=== PATIENT | male | born 1975 | race American Indian/Alaskan Native ===

== ENCOUNTER 2019-07-20 14:03 | Emergency (ER) | payer SELFPAY ==
[2019-07-20] MEDS ORDERED: SODIUM CHLORIDE 0.9% 1000 ML 1,000 ML IV ONE ×3 (16:19→19:30)
[2019-07-20] MEDS ORDERED: INSULIN REGULAR, HUMAN 100 UNITS/1 ML IV ONE ×2 (16:20→19:29)
[2019-07-20 16:52] LABS: Basophils # (Auto) 0.1 K/mm3 (0.0-0.1); Eosinophils # (Auto) 0.2 K/mm3 (0.0-0.4); Eosinophils % (Auto) 3.4 % (0.0-4.3); Hematocrit 44.1 % (35.5-45.6); Lymphocytes # (Auto) 2.9 K/mm3 (1.2-5.4); Lymphocytes % (Auto) 39.9 % (13.4-35.0); Mean Corpuscular HGB Conc 34 % (32-34); Mean Corpuscular Volume 90 fl (84-94); Monocytes # (Auto) 0.6 K/mm3 (0.0-0.8); Monocytes % (Auto) 8.6 % (0.0-7.3); Platelet Count 210 K/mm3 (140-440); Red Blood Count 4.91 M/mm3 (3.65-5.03); Red Cell Distribution Width 12.7 % (13.2-15.2)
[2019-07-20 17:15] LABS: Alanine Aminotransferase 115 units/L (7-56); BUN/Creatinine Ratio 13; Blood Urea Nitrogen 15 mg/dL (9-20); Calcium 9.5 mg/dL (8.4-10.2); Hemolysis Index 29
--- NOTE | 2019-07-20 17:34 | Emergency Department Report ---
ED General Adult HPI - General Chief complaint: Medical Clearance Stated complaint: HIGH BLOOD SUGAR PUI?: No Time Seen by Provider: 07/20/19 16:19 Source: patient Mode of arrival: Ambulatory Limitations: No Limitations - History of Present Illness Initial comments: This is a 43-year-old male with a recent diagnosis of diabetes mellitus 2 x 1 month who presents to the ED today for hyperglycemia. 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 Patient states he is A1c was 9.2 at the clinic. Patient states that he has not yet followed up with a primary care physician but has an appointment with [facility] [place] for Saturday next week at 11 AM. Patient states he takes no medication. Patient denies fever/chills/headache/blurry vision/abdominal pain/chest pain/shortness of breath/nausea vomiting or any other symptoms. Patient is here because he was sent by the [facility] clinic - Related Data Previous Rx's Medication Instructions Recorded Last Taken Type metFORMIN [Glucophage] 850 mg PO BID #30 tablet 07/20/19 Unknown Rx Allergies Allergy/AdvReac Type Severity Reaction Status Date / Time No Known Allergies Allergy Unverified 07/20/19 14:27 ED Review of Systems ROS: Stated complaint: HIGH BLOOD SUGAR Other details as noted in HPI Comment: All other systems reviewed and negative ED Past Medical Hx - Past Medical History Previous Medical History?: No - Surgical History Past Surgical History?: No - Social History Smoking Status: Never Smoker Substance Use Type: None - Medications Home Medications: Home Medications Medication Instructions Recorded Confirmed Last Taken Type metFORMIN [Glucophage] 850 mg PO BID #30 tablet 07/20/19 Unknown Rx ED Physical Exam - General Limitations: No Limitations General appearance: alert, in no apparent distress - Head Head exam: Present: atraumatic, normocephalic - Eye Eye exam: Present: normal appearance - ENT ENT exam: Present: mucous membranes moist - Neck Neck exam: Present: normal inspection - Respiratory Respiratory exam: Present: normal lung sounds bilaterally. Absent: respiratory distress - Cardiovascular Cardiovascular Exam: Present: regular rate, normal rhythm. Absent: systolic murmur, diastolic murmur, rubs, gallop - GI/Abdominal GI/Abdominal exam: Present: soft, normal bowel sounds. Absent: distended, tenderness, guarding - Rectal Rectal exam: Present: deferred - Extremities Exam Extremities exam: Present: normal inspection - Back Exam Back exam: Present: normal inspection - Neurological Exam Neurological exam: Present: alert, oriented X3 - Psychiatric Psychiatric exam: Present: normal affect, normal mood - Skin Skin exam: Present: warm, dry, intact, normal color. Absent: rash ED Course Vital Signs 07/20/19 07/20/19 14:26 19:12 Temperature 98.0 F 98.0 F Pulse Rate 96 H 83 Respiratory 20 16 Rate Blood Pressure 134/84 110/73 O2 Sat by Pulse 97 98 Oximetry ED Medical Decision Making - Lab Data Result diagrams: 07/20/19 16:40 07/20/19 20:45 Laboratory Last Values WBC 7.2 K/mm3 (4.5-11.0) 07/20/19 16:40 RBC 4.91 M/mm3 (3.65-5.03) 07/20/19 16:40 Hgb 15.0 gm/dl (11.8-15.2) 07/20/19 16:40 Hct 44.1 % (35.5-45.6) 07/20/19 16:40 MCV 90 fl (84-94) 07/20/19 16:40 MCH 31 pg (28-32) 07/20/19 16:40 MCHC 34 % (32-34) 07/20/19 16:40 RDW 12.7 % (13.2-15.2) L 07/20/19 16:40 Plt Count 210 K/mm3 (140-440) 07/20/19 16:40 Lymph % (Auto) 39.9 % (13.4-35.0) H 07/20/19 16:40 [place] % (Auto) 8.6 % (0.0-7.3) H 07/20/19 16:40 Eos % (Auto) 3.4 % (0.0-4.3) 07/20/19 16:40 Baso % (Auto) 1.0 % (0.0-1.8) 07/20/19 16:40 Lymph # 2.9 K/mm3 (1.2-5.4) 07/20/19 16:40 [place] # 0.6 K/mm3 (0.0-0.8) 07/20/19 16:40 Eos # 0.2 K/mm3 (0.0-0.4) 07/20/19 16:40 Baso # 0.1 K/mm3 (0.0-0.1) 07/20/19 16:40 Seg Neutrophils % 47.1 % (40.0-70.0) 07/20/19 16:40 Seg Neutrophils # 3.4 K/mm3 (1.8-7.7) 07/20/19 16:40 VBG pH 7.279 (7.320-7.420) L 07/20/19 17:52 Sodium 137 mmol/L (137-145) D 07/20/19 20:45 Potassium 4.3 mmol/L (3.6-5.0) 07/20/19 20:45 Chloride 100.8 mmol/L (98-107) 07/20/19 20:45 Carbon Dioxide 26 mmol/L (22-30) 07/20/19 20:45 Anion Gap 15 mmol/L 07/20/19 20:45 BUN 13 mg/dL (9-20) 07/20/19 20:45 Creatinine 1.0 mg/dL (0.8-1.5) 07/20/19 20:45 Estimated GFR > 60 ml/min 07/20/19 20:45 BUN/Creatinine Ratio 13 % 07/20/19 20:45 Glucose 337 mg/dL (75-100) H 07/20/19 20:45 POC Glucose 333 (70-105) H 07/20/19 19:01 Calcium 8.8 mg/dL (8.4-10.2) 07/20/19 20:45 Total Bilirubin 0.30 mg/dL (0.1-1.2) 07/20/19 16:40 AST 45 units/L (5-40) H 07/20/19 16:40 ALT 115 units/L (7-56) H 07/20/19 16:40 Alkaline Phosphatase 149 units/L (35-129) H 07/20/19 16:40 Total Protein 7.5 g/dL (6.3-8.2) 07/20/19 16:40 Albumin 4.0 g/dL (3.9-5) 07/20/19 16:40 Albumin/Globulin Ratio 1.1 % 07/20/19 16:40 - Medical Decision Making 43-year-old male with a recent diagnosis of bipolar diabetes presents with hypoglycemia. Fingerstick upon arrival was 374. After blood work blood glucose was at 501. Liver functions moderately elevated. All other labs within normal limits Patient flushed with 2 L of fluid, 6 units of insulin. Patient has no history of liver disease. Encouraged patient to follow-up with a cylinder batcher and mention this to his primary care physician at his appointment on Saturday. Blood sugar reduced Critical care attestation.: If time is entered above; I have spent that time in minutes in the direct care of this critically ill patient, excluding procedure time. ED Disposition Clinical Impression: Hyperglycemia due to type 2 diabetes mellitus Disposition: TO HOME OR SELFCARE Is pt being admited?: No Does the pt Need Aspirin: No Condition: Stable Instructions: Diabetes Mellitus Type 2 in Adults (ED), Diabetic Hyperglycemia (ED) Additional Instructions: Make sure to follow up with the primary care physician as discussed. Take all your medications as you've been prescribed. If you have any worsening symptoms or develop new symptoms please return to ED immediately. Prescriptions: metFORMIN [Glucophage] 850 mg PO BID #30 tablet [facility] [Primary Care Provider[facility] - 3-5 Days Forms: Work/School Release Form(ED) Time of Disposition: 21:46
[2019-07-20 21:11] LABS: BUN/Creatinine Ratio 13; Blood Urea Nitrogen 13 mg/dL (9-20); Calcium 8.8 mg/dL (8.4-10.2); Hemolysis Index 39
[2019-07-21 13:28] VITALS: BP 110/73
== END 2019-07-20 22:00 | disposition home or self-care (01) ==
LOC: ED 14:03
DX: E11.65 Type 2 diabetes mellitus with hyperglycemia (principal); Z79.899 Other long term (current) drug therapy
CPT/HCPCS: 36415; 80048; 80053; 82805; 82962; 85025; 96361; 96374; 96375; 99283; J7030; J1815